=== PATIENT | female | born 1945 | race Caucasian/White ===

== ENCOUNTER 2023-12-28 12:17 | Inpatient (IN) | payer MEDICARE ==
[2023-12-28 13:07] LABS: BASOPHILS PERCENT AUTO 0.2 % (0.1-1.3); EOSINOPHILS ABSOLUTE AUTO 0.18 K/uL (0.00-0.40); EOSINOPHILS PERCENT AUTO 3.5 % (0.0-5.4); HEMATOCRIT 33.7 % (34.3-46.0); HEMOGLOBIN 11.4 g/dL (11.2-15.5); IMMATURE GRAN PERCENT AUTO 0.2 % (0.0-0.7); LYMPHOCYTES ABSOLUTE AUTO 0.97 K/uL (0.8-3.3); LYMPHOCYTES PERCENT AUTO 18.7 % (11.4-47.7); MEAN CORPUSCULAR HEMOGLOBIN 29.7 pg (31.6-35.5); MEAN CORPUSCULAR HGB CONC 33.8 g/dL (31.6-35.5); MEAN CORPUSCULAR VOLUME 87.8 fL (81.4-99.0); MONOCYTES ABSOLUTE AUTO 0.64 K/uL (0.20-0.90); MONOCYTES PERCENT AUTO 12.4 % (3.3-12.6); NEUTROPHILS ABSOLUTE AUTO 3.37 K/uL (1.0-7.6); PLATELET COUNT,PLT 139 K/uL (130-375); RED BLOOD CELL COUNT 3.84 M/uL (3.77-5.24); WHITE BLOOD CELL COUNT,WBC 5.2 K/uL (3.2-11.0)
[2023-12-28 13:08] LABS: BASOPHILS ABSOLUTE AUTO 0.01 K/uL (0.00-0.10); IMMATURE GRAN ABSOLUTE AUTO 0.01 K/uL (0.00-0.23)
[2023-12-28 13:37] LABS: ALANINE AMINOTRANSFERASE,ALT 15 U/L (12-78); ALBUMIN 3.7 g/dL (3.4-5.0); ALKALINE PHOSPHATASE 92 U/L (46-116); ANION GAP 11.1 mmol/L (5.0-14.0); ASPARTATE AMNIOTRANSFERASE,AST 15 U/L (15-37); BILIRUBIN TOTAL 0.8 mg/dL (0.2-1.0); BLOOD UREA NITROGEN,BUN 24 mg/dL (7-18); C-REACTIVE PROTEIN < 0.50 mg/dL (<0.50); CALCIUM 8.8 mg/dL (8.5-10.1); CARBON DIOXIDE,CO2 32 mmol/L (21-32); CHLORIDE,CL 98 mmol/L (100-108); CREATININE 1.8 mg/dL (0.6-1.0); ESTIMATED GFR 29 mL/min (>60); GLUCOSE RANDOM 148 mg/dL (74-106); POTASSIUM,K 3.1 mmol/L (3.6-5.2); PROTEIN TOTAL,TP 7.4 g/dL (6.4-8.2); SODIUM,NA 138 mmol/L (140-148); TROPONIN I HIGH SENSITIVITY 8.6 pg/mL (<=60.3)
[2023-12-28] MEDS: Furosemide 40 MG/4 ML VIAL IVPUSH ONE (13:52)
[2023-12-28] MEDS: Potassium Chloride 20 MEQ Tab.ER PO ONE ×2 (14:08→16:46)
[2023-12-28] MEDS: Potassium Chloride 10 MEQ in Premix Bag 1 BAG IV ONE (14:08)
[2023-12-28] MEDS ORDERED: Ondansetron 4 MG/2 ML SDV IV PRN (17:25)
[2023-12-28] MEDS ORDERED: Polyethylene Glycol 3350 Powder 17 GM Packet PO PRN (17:25)
[2023-12-28] MEDS ORDERED: Sodium Chloride 0.9% 10 ML Syringe FLUSH PRN (17:25)
[2023-12-28] MEDS: Bumetanide 2.5 MG/10 ML MDV IVPUSH SCH (19:30)
[2023-12-28] MEDS: Atenolol 25 MG Tab PO SCH (21:49)
[2023-12-28] MEDS: rOPINIRole 1 MG Tab PO SCH (21:49)
[2023-12-28] MEDS: Latanoprost 0.005% Ophth Soln 2.5 ML Bottle EYEBOTH SCH (21:58)
[2023-12-29] MEDS: Acetaminophen/oxyCODONE 325-5 MG Tab PO PRN (04:00)
[2023-12-29 07:43] LABS: PROTHROMBIN TIME 19.7 sec (9.2-10.6)
[2023-12-29 07:44] LABS: ANION GAP 7.1 mmol/L (5.0-14.0); CALCIUM 9.1 mg/dL (8.5-10.1); CREATININE 1.4 mg/dL (0.6-1.0); EST CRCL DRUG DOSING (CG) 26.62 mL/min; MAGNESIUM 1.9 mg/dL (1.8-2.4)
[2023-12-29] MEDS: Lisinopril 20 MG Tab PO SCH (09:00)
[2023-12-29 13:36] LABS: HEMATOCRIT 34.2 % (34.3-46.0); HEMOGLOBIN 11.4 g/dL (11.2-15.5); MEAN CORPUSCULAR HEMOGLOBIN 29.4 pg (31.6-35.5); MEAN CORPUSCULAR HGB CONC 33.3 g/dL (31.6-35.5); MEAN CORPUSCULAR VOLUME 88.1 fL (81.4-99.0); RED BLOOD CELL COUNT 3.88 M/uL (3.77-5.24); WHITE BLOOD CELL COUNT,WBC 4.9 K/uL (3.2-11.0)
[2023-12-29] MEDS ORDERED: Potassium Chloride 20 MEQ Tab.ER PO ONE ×2 (14:00→17:00)
[2023-12-29] MEDS: Warfarin 2.5 MG Tab PO SCH (14:42)
[2023-12-29] MEDS: Potassium Chloride 20 MEQ Tab.ER PO ONE ×2 (15:26→18:33)
[2023-12-29] MEDS: Calcium Carbonate 500 MG Tab.Chew PO PRN (20:15)
[2023-12-29] MEDS: hydrOXYzine HCl 25 MG Tab PO PRN (21:54)
[2023-12-30] MEDS: Atenolol 25 MG Tab PO ONE (01:06)
[2023-12-30 05:16] LABS: INR 1.8; PROTHROMBIN TIME 17.8 sec (9.2-10.6)
[2023-12-30 05:24] LABS: ANION GAP 10.4 mmol/L (5.0-14.0); CALCIUM 9.3 mg/dL (8.5-10.1); CREATININE 1.3 mg/dL (0.6-1.0); EST CRCL DRUG DOSING (CG) 28.66 mL/min; POTASSIUM,K 4.4 mmol/L (3.6-5.2)
[2023-12-30] MEDS: Acetaminophen 325 MG Tab PO PRN (16:09)
[2023-12-30] MEDS: Digoxin 500 MCG/2 ML Amp IVPUSH ONE (18:00)
[2023-12-31 06:30] LABS: INR 1.6; PROTHROMBIN TIME 16.4 sec (9.2-10.6)
[2023-12-31 06:41] LABS: ANION GAP 13.8 mmol/L (5.0-14.0); CALCIUM 9.6 mg/dL (8.5-10.1); CREATININE 1.2 mg/dL (0.6-1.0); DIGOXIN 0.4 ng/mL (0.90-2.00); EST CRCL DRUG DOSING (CG) 31.05 mL/min; POTASSIUM,K 3.8 mmol/L (3.6-5.2)
[2023-12-31] MEDS: Digoxin 125 MCG Tab PO SCH (12:48)
[2024-01-01 06:09] LABS: INR 1.6; PROTHROMBIN TIME 16.4 sec (9.2-10.6)
[2024-01-01 06:22] LABS: ANION GAP 12.1 mmol/L (5.0-14.0); CALCIUM 8.9 mg/dL (8.5-10.1); CREATININE 1.2 mg/dL (0.6-1.0); DIGOXIN 0.53 ng/mL (0.90-2.00); EST CRCL DRUG DOSING (CG) 31.05 mL/min; MAGNESIUM 1.8 mg/dL (1.8-2.4); POTASSIUM,K 3.1 mmol/L (3.6-5.2)
[2024-01-01] MEDS: Warfarin 5 MG Tab PO ONE (12:49)
[2024-01-01] MEDS: Potassium Chloride 20 MEQ Tab.ER PO SCH (18:11)
[2024-01-02 05:18] LABS: HEMATOCRIT 35.4 % (34.3-46.0); HEMOGLOBIN 11.9 g/dL (11.2-15.5); MEAN CORPUSCULAR HEMOGLOBIN 29.2 pg (31.6-35.5); MEAN CORPUSCULAR HGB CONC 33.6 g/dL (31.6-35.5); RED BLOOD CELL COUNT 4.07 M/uL (3.77-5.24); WHITE BLOOD CELL COUNT,WBC 6.1 K/uL (3.2-11.0)
[2024-01-02 05:34] LABS: INR 1.4; PROTHROMBIN TIME 14.5 sec (9.2-10.6)
[2024-01-02 11:14] VITALS: BP 136/54; PULSE 86
[2024-01-02] MEDS: Warfarin 5 MG Tab PO ONE (12:17)
== END 2024-01-02 13:15 | disposition home or self-care (01) | DRG 291 ==
LOC: JP.ED 12:17 → JP.MS 16:34
PROVIDERS: ADMIT Hospitalist; ATTEND Hospitalist
DX: I11.0 Hypertensive heart disease with heart failure (principal); I13.0 Hypertensive heart and chronic kidney disease with heart failure and stage 1 through stage 4 chronic kidney disease, or unspecified chronic kidney disease; R09.02 Hypoxemia; I50.31 Acute diastolic (congestive) heart failure; J90 Pleural effusion, not elsewhere classified; N18.4 Chronic kidney disease, stage 4 (severe); Z66 Do not resuscitate; I48.91 Unspecified atrial fibrillation; E87.6 Hypokalemia; Z79.01 Long term (current) use of anticoagulants; Z88.1 Allergy status to other antibiotic agents; Z88.0 Allergy status to penicillin; Z88.2 Allergy status to sulfonamides; Z79.899 Other long term (current) drug therapy; Z87.442 Personal history of urinary calculi; Z90.710 Acquired absence of both cervix and uterus; Z98.890 Other specified postprocedural states
CPT/HCPCS: 36415; 71046; 80053; 83605; 83880; 84484; 85025; 86140; 93005; 96365; 96375; 99285; A9270; J1940; J3480; 80048; 80162; 83735; 85027; 85610; 93010; 93306; 94761; 97161-GP; 99222; 99232; 99239; J1160; J3490